=== PATIENT | female | born 1975 | race African-American/Black ===

== ENCOUNTER 2021-07-20 18:27 | Emergency (ER) | payer OTHER, SELFPAY ==
--- NOTE | ~2021-07-20 | US_ITS ---
EXAMINATION: US PELVIS CLINICAL INFORMATION: Pelvic pain with vaginal bleeding COMPARISON: None TECHNIQUE: Ultrasound of the pelvis is performed using both transabdominal and transvaginal transducers along with Doppler. Transvaginal imaging is performed due to inadequate visualization transabdominally. FINDINGS: Uterus: The enlarged uterus is anteverted and measures 12.2 x 7.0 x 7.5 cm for a volume of 335 mL. The double wall endometrial thickness is increased at 2.5 cm and may contain homogeneous blood products. At least 2 uterine fibroids are seen in the lower uterine segment measuring 3.5 x 4.07 cm and 2.4 x 2.9 x 2.8 cm.. Adnexa: The right ovary was not seen. Left ovary measured 3.1 x 2.6 x 2.2 cm for a volume of 9.3 mL. Small amount of free fluid is present in the cul-de-sac. US/US pelvic and transvaginal IMPRESSION: Uterine fibroids and thickened hypoechoic endometrium without vascularity may represent blood products the vaginal bleeding. Follow-up is recommended.
[2021-07-20 18:56] VITALS: BP 159/82; PULSE 84; RESP 20; TEMP 37.1; O2SAT 98; BMI 38.4
[2021-07-20 19:08] LABS: MANUAL DIFF FLAG NO
[2021-07-20 19:10] LABS: Basophils Percent Auto 0.2 % (0-2); Eosinophils Absolute Auto 0.1 X10*3/uL (0.0-0.4); Eosinophils Percent Auto 1.6 % (0-4); Hematocrit 35.1 % (37.0-47.0); Hemoglobin 10.9 g/dl (12.0-16.0); Imm Gran Abs Auto 0.02 X10*3/uL (0.00-0.03); Imm Gran Pct Auto 0.4 % (0.0-0.4); Lymphocytes Absolute Auto 1.2 X10*3/uL (1.2-4.9); Lymphocytes Percent Auto 23.8 % (20-40); Mean Corpuscular HGB Conc 31.1 g/dl (31.0-35.0); Mean Corpuscular Hemoglobin 23.4 pg (27.0-33.0); Mean Corpuscular Volume 75.5 fL (80.0-98.0); Mean Platelet Volume 9.7 fL (9.4-12.3); Monocytes Absolute Auto 0.5 X10*3/uL (0.1-1.2); Neutrophils Absolute Auto 3.3 x10*3/uL (2.0-8.3); Platelet Count 210 X10*3/uL (160-400); Red Blood Count 4.65 X10*6/uL (4.20-5.50); Red Cell Distribution Width 16.4 % (11.0-16.0); White Blood Count 5.1 X10*3/uL (4.8-10.8)
[2021-07-20 19:25] LABS: Appearance Urine CLOUDY; Color Urine OTHER; Glucose Urine UA NEG (NEG); Leukocyte Esterase Urine TRACE (NEG); Nitrite Urine NEG (NEG); PH 6.5 (5.0-8.0); Specific Gravity - Urine >= 1.030 (1.005-1.025); UACC Culture Trigger YES; Urine Blood 3+ (NEG); Urine Ketones 40 MG/DL (NEG); Urine Protein 2+ MG/DL (NEG-TRACE)
[2021-07-20 19:27] LABS: Anion Gap 12 (12-20); Blood Urea Nitrogen 13 mg/dL (9-16); Carbon Dioxide 26 mmol/L (22-29); Chloride 103 mmol/L (96-108); Creatinine Clr Calc Pharmacy 101.9; Estimated Glomerular Filt Rate > 60; Glucose Random 186 mg/dL (60-115); Potassium 3.9 mmol/L (3.3-5.1); Sodium 137 mmol/L (135-145)
[2021-07-20 19:29] LABS: UACC CULT YES
[2021-07-20 19:30] LABS: Amorphous Sediment Urine 3+ /LPF; Bacteria Urine 4+ /LPF; Mucus Urine 2+ /LPF; Squamous Epithelial Cell Urine 3+ /LPF
[2021-07-20 20:52] VITALS: BP 164/81; PULSE 80; RESP 18; TEMP 37; O2SAT 99
--- NOTE | 2021-07-20 21:23 | ED.FEMALEGU ---
HPI - Female Genitourinary General Chief complaint: Urogenital-Female Stated complaint: vaginal bleeding/pain Time Seen by Provider: 07/20/21 21:23 Source: patient Mode of arrival: ambulatory Limitations: no limitations History of Present Illness HPI Narrative: 2 weeks of period with pain, she has had prolonged periods with no pain MD elicited complaint: vaginal bleeding Onset (ago): day(s) Severity: mild Quality of pain: cramping Consistency: constant Associated symptoms: denies other symptoms Related Data Previous Rx's Medication Instructions Recorded naproxen 500 mg tablet (Naprosyn) 500 mg PO BID #20 tab 07/20/21 Allergies Allergy/AdvReac Type Severity Reaction Status Date / Time No Known Allergies Allergy Verified 07/20/21 18:55 Review of Systems Constitutional: Constitutional: Reports no additional constitutional complaints Eyes: Eyes: Reports no additional eye complaints ENT: Denies dizziness Cardiovascular: Cardiovascular: Reports no additional cardiovascular complaints Respiratory: Respiratory: Reports as per HPI Gastrointestinal: Gastrointestinal: Reports no additional gastrointestinal complaints Genitourinary: Genitourinary: Reports no additional female genitourinary complaints Musculoskeletal: Musculoskeletal: Reports no additional musculoskeletal complaints Integumentary/Breasts: Skin/Breast: Denies rash Neurologic: Reports system reviewed and no additional complaints, except as documented, Denies dizziness and Denies Sensory deficit (Neuro) Psychiatric: Psychiatric: Denies anxiety [facility] Social History Social History Alcohol intake: never Patient Tobacco Use Status: Never used Tobacco Use of substances other than those prescribed or required for medical reasons: No Advance Directives: No Advance Directives Information Provided: No Patient : No Physical Exam Vital Signs: Vital Signs: Last Vital Signs Temp 98.6 F 07/20/21 20:52 Pulse 84 07/20/21 22:00 Resp 15 07/20/21 22:00 BP 149/71 H 07/20/21 22:00 Pulse Ox 99 07/20/21 20:52 BMI result Body Mass Index 38.4 Const: Other: obese female in pain Nutritional Appearance: obese Orientation/consciousness: oriented to person and patient oriented x3 Limitations: no limitations HENMT: Head: Yes normal to inspection Ears: external ears normal General nose exam: Normal external nose present Mouth: Normal oral and palatal mucosa present and oropharynx normal Throat: Yes posterior oropharynx normal Eyes: General: appearance normal, both eyes and all related structures Neck: Other: supple Neck: Yes normal visual inspection Chest: Chest palpation & inspection: normal inspection of the chest Resp: Auscultation: clear to auscultation bilaterally Cardio: Jugular venous distension: no JVD Rate: regular rate Rhythm: regular rhythm Heart sounds: S1 normal heart sound present and S2 normal heart sound present GI: Other: pelvic pain to palpation, no guarding or rebound Palpation (GI): No hepatosplenomegaly present Auscultation: normal bowel sounds : Other: normal vagina and vault, minimal bleeding, positive uterine tenderness with palpation on bimanual exam General: Yes no CVA tenderness Back/Spine/Pelvis: Back: no CVA tenderness Skin: General skin exam: no rashes or lesions noted Neuro: General: oriented to person and patient oriented x3 Cranial nerves: Yes CN's II-XII intact bilaterally Motor exam (neuro): 5/5 motor strength present throughout Sensory Exam: No Sensory deficit (Neuro) Extrem: General: Yes normal to inspection Psych: Appearance: grossly normal Course Reevaluation(s) Reevaluation #1: Patient with dysmenorrhea secondary to fibroid uterus will dc home Time: 23:11 [facility] - Female Genitourinary Lab Data Result diagrams: 07/20/21 19:03 07/20/21 19:03 Labs: Lab Results 07/20/21 07/20/21 07/20/21 Range/Units 19:03 19:03 19:19 WBC 5.1 (4.8-10.8) X10*3/uL RBC 4.65 (4.20-5.50) X10*6/uL Hgb 10.9 L (12.0-16.0) g/dl Hct 35.1 L (37.0-47.0) % MCV 75.5 L (80.0-98.0) fL MCH 23.4 L (27.0-33.0) pg MCHC 31.1 (31.0-35.0) g/dl RDW 16.4 H (11.0-16.0) % Plt Count 210 (160-400) X10*3/uL MPV 9.7 (9.4-12.3) fL Immature Gran % (Auto) 0.4 (0.0-0.4) % Neut % (Auto) 65.0 (45-73) % Lymph % (Auto) 23.8 (20-40) % [place] % (Auto) 9.0 (2-11) % Eos % (Auto) 1.6 (0-4) % Baso % (Auto) 0.2 (0-2) % Lymph # (Auto) 1.2 (1.2-4.9) X10*3/uL [place] # (Auto) 0.5 (0.1-1.2) X10*3/uL Eos # (Auto) 0.1 (0.0-0.4) X10*3/uL Baso # (Auto) 0.0 (0.0-0.2) X10*3/uL Abs Immat Gran (auto) 0.02 (0.00-0.03) X10*3/uL Absolute Neuts (auto) 3.3 (2.0-8.3) x10*3/uL Absolute Nucleated RBC 0.000 (0.0-0.012) X10*3/uL Nucleated RBC % (auto) 0.0 (0.0-0.2) /100WBC Sodium 137 (135-145) mmol/L Potassium 3.9 (3.3-5.1) mmol/L Chloride 103 (96-108) mmol/L Carbon Dioxide 26 (22-29) mmol/L Anion Gap 12 (12-20) BUN 13 (9-16) mg/dL Creatinine 0.75 (0.5-1.4) mg/dL Estim Creat Clear Calc 101.9 Estimated GFR > 60 Random Glucose 186 H (60-115) mg/dL Calcium 9.0 (8.4-10.2) mg/dL Beta HCG, Quant < 2 mIU/mL Urine Color OTHER A Urine Appearance CLOUDY Urine pH 6.5 (5.0-8.0) Ur Specific [place] >= 1.030 H (1.005-1.025) Urine Protein 2+ H (NEG-TRACE) MG/DL Urine Glucose (UA) NEG (NEG) MG/DL Urine Ketones 40 (NEG) MG/DL Urine Blood 3+ H (NEG) Urine Nitrite NEG (NEG) Ur Leukocyte Esterase TRACE H (NEG) Urine RBC 76-150 H (0) /HPF Urine WBC 76-150 H (0-4) /HPF Ur Squamous Epith Cells 3+ /LPF Amorphous Sediment 3+ /LPF Urine Bacteria 4+ /LPF Urine Mucus 2+ /LPF Imaging Data pelvic US: Radiologist's impression: FINDINGS: Uterus: The enlarged uterus is anteverted and measures 12.2 x 7.0 x 7.5 cm for a volume of 335 mL. The double wall endometrial thickness is increased at 2.5 cm and may contain homogeneous blood products.? At least 2 uterine fibroids are seen in the lower uterine segment measuring 3.5 x 4.07 cm and 2.4 x 2.9 x 2.8 cm.. Adnexa: The right ovary was not seen. Left ovary measured 3.1 x 2.6 x 2.2 cm for a volume of 9.3 mL. Small amount of free fluid is present in the cul-de-sac. US/US pelvic and transvaginal IMPRESSION: Uterine fibroids and thickened hypoechoic endometrium without vascularity may represent blood products the vaginal bleeding. Follow-up is recommended. Discharge Plan Discharge Clinical Impression: Dysmenorrhea, Uterine fibroid Patient Disposition: Home, Self-Care Instructions: Dysmenorrhea (ED) Prescriptions: New naproxen [Naprosyn] 500 mg tablet 500 mg PO BID Qty: 20 0RF Referrals: Júnior Golden MD [Physician] - 1 week
[2021-07-20 21:55] LABS: HCG Quantitative < 2 mIU/mL
[2021-07-20 22:00] VITALS: BP 149/71; PULSE 84; RESP 15
[2021-07-20] MEDS: Ketorolac Tromethamine 60 MG/2 ML VIAL IM (22:30)
== END 2021-07-20 23:27 | disposition home or self-care (01) ==
PROVIDERS: Emergency Provider Emergency Medicine
DX: N94.6 Dysmenorrhea, unspecified (principal); D25.9 Leiomyoma of uterus, unspecified; R10.9 Unspecified abdominal pain; E11.9 Type 2 diabetes mellitus without complications
CPT/HCPCS: 36415; 76830; 76856; 80048; 81001; 84702; 85025; 87086; 87088; 87186; 96372; 99284; 99285; J1885

== ENCOUNTER 2021-07-21 17:51 | Emergency (ER) | payer OTHER, SELFPAY ==
[2021-07-21 18:07] VITALS: BP 162/88; PULSE 88; RESP 16; TEMP 36.3; O2SAT 99; BMI 38.4
--- NOTE | 2021-07-21 19:30 | ED_ITS ---
HPI - General Adult General Chief complaint: Vaginal Bleeding Stated complaint: Pelvic pain Time Seen by Provider: 07/21/21 18:30 Source: patient Mode of arrival: ambulatory Limitations: no limitations History of Present Illness HPI narrative: 46-year-old female with history of fibroids presents to the ED for pelvic pain. Patient was seen here yesterday for pelvic pain and vaginal bleeding. Patient had ultrasound yesterday which showed fibroids. Patient return to the ED today because she still having the same pain. Patient denies any weakness, chest pain, shortness of breath, or worsening vaginal bleeding. Patient next appointment with her OBGYN is September 26.. Denies any recent trauma. Related Data Previous Rx's Medication Instructions Recorded ketorolac 10 mg tablet 10 mg PO TID PRN 5 Days #20 tab 07/21/21 Allergies Allergy/AdvReac Type Severity Reaction Status Date / Time No Known Allergies Allergy Verified 07/21/21 18:04 Review of Systems Review of Systems: Pelvic pain Yes all other systems are reviewed and are negative [facility] Past Medical History Medical History (Updated 07/21/21 @ 20:26 by STEVE Cheng) No known health problems Social History Social History Alcohol intake: never Patient Tobacco Use Status: Never used Tobacco Advance Directives: No Advance Directives Information Provided: No Physical Exam ED Vital Signs: Vital Signs - 24 hr 07/21/21 18:07 Temperature 97.4 F Pulse Rate 88 Respiratory Rate 16 Blood Pressure 162/88 H Pulse Oximetry 99 BMI result Body Mass Index 38.4 Const General: cooperative, healthy appearing, comfortable, no acute distress, well developed, alert and awake Orientation/consciousness: patient oriented x3 HENMT Head: Yes normal to inspection, Yes No palpable skull fracture present, Yes normocephalic, Yes atraumatic and No abrasion Eyes General: appearance normal, both eyes and all related structures Neck Neck: Yes normal visual inspection, Yes full ROM, Yes no lymphadenopathy, Yes no meningeal signs, Yes trachea midline, Yes supple, No anterior neck swelling and No tender Chest Chest palpation & inspection: normal inspection of the chest and normal palpation of entire chest wall Resp Effort & Inspection: normal respiratory effort and able to speak in complete sentences Auscultation: clear to auscultation bilaterally Cardio Jugular venous distension: no JVD Heart sounds: S1 normal heart sound present and S2 normal heart sound present GI Inspection: Yes normal to inspection and No abdominal wall ecchymosis Palpation (GI): Tenderness to palpation present (GI) suprapubicly (pelvic), no guarding and not rigid Other: Deferred General: No CVA tenderness and Yes no CVA tenderness Back/Spine/Pelvis Back: no CVA tenderness, No CVA tenderness and No back tenderness Skin General skin exam: no rashes or lesions noted and elasticity normal Neuro General: patient oriented x3, gait normal and no meningeal signs Cranial nerves: Yes CN's II-XII intact bilaterally Extrem General: Yes normal to inspection and Yes full ROM Psych Appearance: grossly normal, well kempt and not disheveled Course Course Course Narrative: No need for repeat labs or imaging. Will order pain meds Reevaluation(s) Reevaluation #1: Patient's pain resolved after receiving Toradol. Patient asked to be discharged with Toradol. Patient informed to stop taking naproxen because both together. cause bleeding. Patient does not want any narcotics due to history of opiate addiction in the past and is on Suboxone Time: 20:23 Medical Decision Making MDM Narrative Medical decision making narrative: Fibroids Discharge Plan Discharge Clinical Impression: Fibroid Patient Disposition: Home, Self-Care Instructions: Dysmenorrhea (ED) Additional Instructions: Stop taking naproxen or any other NSAID due to prescription of Toradol that you will be given. If you take Toradol with any other NSAID ( ibuprofen, alleve, motrin, naproxen ) that will increase your chances for GI bleed. Return to the ED for worsening vaginal bleeding, severe abdominal pain, weakness, dizziness, pale skin, chest pain, shortness of breath, or any other concerning symptoms. Please call your OBGYN for early appointment Prescriptions: New ketorolac 10 mg tablet 10 mg PO TID PRN (Reason: pain) 5 Days Qty: 20 0RF Rx Instructions: patient received Toradol 60mg IM in the ED. Do not take any other NSAIDS with this medication. Discontinued naproxen [Naprosyn] 500 mg tablet 500 mg PO BID Qty: 20 0RF Interventions: ED Discharge Assessment Last Done: 07/21/21 20:47 Discharge Date/Time: 07/21/21 20:48 Print Language: Citizen Of [place]
[2021-07-21] MEDS: Ketorolac Tromethamine 60 MG/2 ML VIAL IM (19:32)
== END 2021-07-21 20:48 | disposition home or self-care (01) ==
PROVIDERS: Emergency Provider Internal Medicine
DX: N39.0 Urinary tract infection, site not specified (principal); D25.9 Leiomyoma of uterus, unspecified; R10.2 Pelvic and perineal pain; F11.20 Opioid dependence, uncomplicated
CPT/HCPCS: 96372; 99284; J1885

== ENCOUNTER 2021-07-25 09:43 | Outpatient (REF) | payer OTHER, SELFPAY ==
[2021-07-25 11:12] LABS: Hematocrit 34.5 % (37.0-47.0); Hemoglobin 10.4 g/dl (12.0-16.0); Mean Corpuscular HGB Conc 30.1 g/dl (31.0-35.0); Mean Corpuscular Volume 76.3 fL (80.0-98.0); Mean Platelet Volume 9.8 fL (9.4-12.3); Platelet Count 277 X10*3/uL (160-400); Red Blood Count 4.52 X10*6/uL (4.20-5.50); Red Cell Distribution Width 15.9 % (11.0-16.0); White Blood Count 7.1 X10*3/uL (4.8-10.8)
[2021-07-25 12:08] LABS: HCG Quantitative < 2 mIU/mL; TSH reflex Free T4 1.35 uIU/mL (0.32-4.0)
[2021-07-25 16:55] LABS: CT PCR NOT DETECTED (Not Detect.); NG PCR NOT DETECTED (Not Detect.)
[2021-07-27 21:07] LABS: HPV mRNA E6/E7 rflx Not Detected (Not Detected)
== END 2021-07-25 09:44 | disposition home or self-care (01) ==
LOC: HO.LAB 09:43
PROVIDERS: Visit Provider Obstetrics & Gynecology
DX: Z01.411 Encounter for gynecological examination (general) (routine) with abnormal findings (principal); Z11.51 Encounter for screening for human papillomavirus (HPV); N93.9 Abnormal uterine and vaginal bleeding, unspecified; R10.2 Pelvic and perineal pain
CPT/HCPCS: 36415; 84443; 84702; 85027; 87491; 87591; 87624; 88142; 99202

== ENCOUNTER 2021-08-03 13:58 | Outpatient (REF) | payer OTHER, SELFPAY ==
--- NOTE | ~2021-08-03 | MM_ITS ---
EXAMINATION: MM SCREENING DIGITAL BREAST TOMOSYNTHESIS, BILATERAL CLINICAL INFORMATION: Screening. Asymptomatic. The lifetime risk of breast cancer based on the Tyrer-Cuzick Model is 7%. COMPARISON: Outside mammography: 08/16/2020 ([facility]). TECHNIQUE: Digital breast tomosynthesis is performed in both the craniocaudal and mediolateral oblique views along with computer-aided detection (CAD). Synthesized 2D images are generated from the tomosynthesis. Additional right CC and right MLO views are provided. FINDINGS: There are scattered areas of fibroglandular density (ACR BI-RADS breast composition Category b). There are no significant masses, abnormal calcifications, or other abnormalities. Parenchymal pattern is similar to prior outside exam. The axilla and skin contours are unremarkable. There are no significant changes. MM/MM tomosynthesis screening BI IMPRESSION: No mammographic evidence of malignancy. ASSESSMENT: BI-RADS 1: Negative RECOMMENDATION: Routine annual mammography screening. This patient's information was entered into a reminder system with a target due date for their next mammogram.
== END 2021-08-03 13:59 | disposition home or self-care (01) ==
LOC: HO.MAMMO 13:58
PROVIDERS: Visit Provider Obstetrics & Gynecology
DX: Z12.31 Encounter for screening mammogram for malignant neoplasm of breast (principal)
CPT/HCPCS: 77063; 77067

== ENCOUNTER 2021-08-12 09:13 | Outpatient (REF) | payer OTHER, SELFPAY | END 2021-08-12 09:14 | disposition home or self-care (01) | LOC: HO.LAB 09:13 | PROVIDERS: Visit Provider Obstetrics & Gynecology | DX: N93.9 Abnormal uterine and vaginal bleeding, unspecified (principal) | CPT/HCPCS: 58100; 88305 ==

== ENCOUNTER → 2021-08-29 12:34 | Outpatient (BNVA) | payer OTHER, SELFPAY | PROVIDERS: Visit Provider Obstetrics & Gynecology | DX: N93.9 Abnormal uterine and vaginal bleeding, unspecified (principal); D25.9 Leiomyoma of uterus, unspecified; Z97.5 Presence of (intrauterine) contraceptive device; Z98.890 Other specified postprocedural states | CPT/HCPCS: 99212 ==

== ENCOUNTER → 2021-09-06 15:15 | Outpatient (BNVA) | payer OTHER, SELFPAY | PROVIDERS: Visit Provider Nurse Practitioner | DX: Z12.11 Encounter for screening for malignant neoplasm of colon (principal); F11.20 Opioid dependence, uncomplicated; G47.33 Obstructive sleep apnea (adult) (pediatric) | CPT/HCPCS: 99202 ==

== ENCOUNTER 2021-09-23 05:56 | Day surgery (SDC) | payer OTHER, SELFPAY ==
--- NOTE | 2021-09-22 08:57 | HO.ANESPROP2 ---
Documented by User: Nishi Ibarra NP 09/22/21 08:58 HPI - Anesthesia Eval Consult details Narrative: 46yo F for D&C Hysteroscopy, possible polypectomy/myomectomy,IUD removal Suboxone daily PMFSH Active Problems Active Problems: All Active Problems (Updated 09/16/21 @ 16:21 by Bernie Wilson, RN) Abnormal uterine bleeding (AUB) (Acute) Colon cancer screening (Acute) Asthma (Acute) BARRY (obstructive sleep apnea) (Acute) Diabetes (Acute) High cholesterol (Acute) Opioid dependence on agonist therapy (Acute) Lumbar degenerative disc disease (Acute) Urinary incontinence (Acute) Past Medical History Medical History (Updated 09/16/21 @ 16:21 by Bernei Wilson, RN) Asthma Back pain Diabetes High cholesterol History of opioid abuse BARRY (obstructive sleep apnea) Family History Family History Paternal Aunt Breast CA Surgical History Surgical History (Updated 09/05/21 @ 09:29 by JOSÉ MIGUEL Morrow) H/O total adrenalectomy S/P tubal ligation Social History Social History Alcohol intake: never Patient Tobacco Use Status: Never used Tobacco Use of substances other than those prescribed or required for medical reasons: No Are you DNR?: No Advance Directives: No Advance Directives Information Provided: Yes Meds Allergies Allergy/AdvReac Type Severity Reaction Status Date / Time No Known Allergies Allergy Verified 09/23/21 06:17 Home Medications Medication Instructions Recorded Confirmed Last Taken Type buprenorphine 2 mg-naloxone 0.5 mg 1 film BUCCAL DAILY 07/25/21 09/16/21 09/22/21 22:00 History sublingual film (Suboxone) dulaglutide 0.75 mg/0.5 mL 0.75 mg SUBCUT QWEEK 07/25/21 09/16/21 Unknown History subcutaneous pen injector (Trulicity) insulin glargine 100 unit/mL (3 10 unit SUBCUT BEDTIME 08/12/21 09/23/21 09/22/21 22:00 History mL) subcutaneous pen (Lantus Solostar U-100 Insulin) cyanocobalamin (vitamin B-12) 1 tab PO DAILY 09/16/21 09/16/21 Unknown History 1,000 mcg tablet sitagliptin 50 mg tablet (Januvia) 1 tab PO DAILY 09/16/21 09/16/21 Unknown History Exam Exam Date and Time: September 22, 2021 0857 Pertinent Lab Results Pertinent Lab Results: Laboratory Tests 07/20/21 07/25/21 19:03 10:50 WBC 7.1 Hgb 10.4 L Hct 34.5 L Plt Count 277 D Sodium 137 Potassium 3.9 Chloride 103 Carbon Dioxide 26 BUN 13 Creatinine 0.75 Assessment and Plan Assessment Anesthesia Assessment: Chart Reviewed Documented by User: Soren Villalobos MD 09/23/21 07:17 [facility] Past Medical History Medical History (Updated 09/16/21 @ 16:21 by Brenie Wilson RN) Asthma Back pain Diabetes High cholesterol History of opioid abuse BARRY (obstructive sleep apnea) Family History Family History Paternal Aunt Breast CA Family history of problems with anesthesia: No Surgical History Surgical History (Updated 09/05/21 @ 09:29 by JOSÉ MIGUEL Morrow) H/O total adrenalectomy S/P tubal ligation History of Problems with Anesthesia: No Social History Social History Alcohol intake: never Patient Tobacco Use Status: Never used Tobacco Use of substances other than those prescribed or required for medical reasons: No Are you DNR?: No Advance Directives: No Advance Directives Information Provided: Yes Meds Allergies Allergy/AdvReac Type Severity Reaction Status Date / Time No Known Allergies Allergy Verified 09/23/21 06:17 Home Medications Medication Instructions Recorded Confirmed Last Taken Type buprenorphine 2 mg-naloxone 0.5 mg 1 film BUCCAL DAILY 07/25/21 09/16/21 09/22/21 22:00 History sublingual film (Suboxone) dulaglutide 0.75 mg/0.5 mL 0.75 mg SUBCUT QWEEK 07/25/21 09/16/21 Unknown History subcutaneous pen injector (Trulicity) insulin glargine 100 unit/mL (3 10 unit SUBCUT BEDTIME 08/12/21 09/23/21 09/22/21 22:00 History mL) subcutaneous pen (Lantus Solostar U-100 Insulin) cyanocobalamin (vitamin B-12) 1 tab PO DAILY 09/16/21 09/16/21 Unknown History 1,000 mcg tablet sitagliptin 50 mg tablet (Januvia) 1 tab PO DAILY 09/16/21 09/16/21 Unknown History Exam Airway Mallampati Class: III TM Dist: >3cm Neck ROM: Full Assessment and Plan Assessment Anesthesia Assessment: Anesthesia Plan Discussed Final Anesthetic Review Family History of Problems with Anesthesia: No History of Problems with Anesthesia: No NPO: Yes ASA Class: III Final Preanesthetic Review: No Changes in Pt Med Stat, Meds/Allgs Chart Reviewed, Consent Obtained/Reviewed and Anes Risks/Benef Reviewed Patient Risk: Intermediate Procedure Risk: Low Anesthetic Plan Anesthetic Plan: GA Disposition: Standard PACU
[2021-09-23] VITALS (7 sets, daily range): BP systolic 132–156; BP diastolic 80–96; PULSE 75–94; RESP 16; TEMP 36.9–37.2; O2SAT 95–100; BMI 38.5
[2021-09-23 06:24] LABS: UPreg QC Valid YES; Urine Pregnancy NEGATIVE (NEGATIVE)
[2021-09-23 06:33] LABS: Glucose, Whole Blood 189 mg/dL (60-115)
[2021-09-23] MEDS: Lactated Ringers 1,000 ML 100 ML IVCONT (07:00)
--- NOTE | 2021-09-23 07:37 | MHC.SHP ---
Pre-Procedural Eval Section A Date of Service: 09/23/21 The patient is an INPATIENT: No Changes since office visit: No Cold of Flu in the past 2 weeks, No New Medical Problems, No Changes in Medication and No Patient answered all questions The History & Physical has been completed within 30 days and I have reviewed it.: Yes Section B Chief Complaint: abnormal bleeding Allergies: Allergies Allergy/AdvReac Type Severity Reaction Status Date / Time No Known Allergies Allergy Verified 09/23/21 06:17 Plan Diagnosis/Plan: Unchanged I have reviewed the history and physical and performed a pertinent physical examination on my patient. No changes have occurred unless specified.
--- NOTE | 2021-09-23 07:56 | PM.OP ---
Brief Operative Note Date of Service: 09/23/21 Pre-op diagnosis: Abnormal uterine bleeding Post-op diagnosis: same (Normal endometrial cavity) Procedure: Hysteroscopy D&C, Polypectomy Surgeon: Júnior Golden MD Anesthesia: MAC Was an Geographic Information Scientist used for this Procedure?: No Estimated blood loss (mL): 0 Pathology: other (Endometrial Scrapping. ) Condition: stable Disposition: PACU
--- NOTE | 2021-09-23 07:56 | W.PM.OPN ---
Operative Note Operative Note Date of Service: 09/23/21 Narrative: Preop Diagnosis: Abnormal uterine bleeding Operation: Diagnostic Hysteroscopy, Dilataion & Curettage Post Op Diagnosis: Normal endometrial cavity QBL: Minimal Anesthesia: MAC Surgeon: Júnior Golden MD Telephone Information Supervisor: None Complication: None Pathology: Endometrial Scrapings Procedure: The patient was put in the dorsal lithotomy position, scrubbed, and draped in the usual manner. A sterile speculum was inserted in the patient's vagina. The anterior lip of the cervix was grasped with a single tooth tenaculum. The cervix was dilated up to 5 mm, then the scope was inserted in the patient's uterus. Inspection revealed Normal endometrial cavity. The Myosure Reach device was used; sharp curettings was carried on with moderate amount of tissues retrieved. At the end of the procedure, all instruments were taken out of the patient uterine and vaginal cavity. The single tooth tenaculum was removed and homeostasis was assured using pressure,. The patient tolerated the procedure well and was transferred to the PACU in a stable condition.
== END 2021-09-23 09:10 | disposition home or self-care (01) ==
PROVIDERS: Visit Provider Obstetrics & Gynecology
PROC: 0UDB8ZZ Extraction of Endometrium, Via Natural or Artificial Opening Endoscopic (ICD-10-PCS; CPT 58558; principal; 2021-09-23 07:30)
DX: N93.9 Abnormal uterine and vaginal bleeding, unspecified (principal); Z30.432 Encounter for removal of intrauterine contraceptive device
CPT/HCPCS: 58558; 58301; 81025; 82947; 88305; J0131; J1100; J2250; J2405; J3010

== ENCOUNTER → 2021-10-06 11:47 | Outpatient (BNVA) | payer OTHER, SELFPAY | PROVIDERS: Visit Provider Obstetrics & Gynecology | DX: N93.9 Abnormal uterine and vaginal bleeding, unspecified (principal); D21.9 Benign neoplasm of connective and other soft tissue, unspecified | CPT/HCPCS: 99212 ==

== ENCOUNTER 2022-05-05 17:46 | Emergency (ER) | payer OTHER, SELFPAY ==
--- NOTE | ~2022-05-05 | US_ITS ---
EXAMINATION: ULTRASOUND PELVIC, COMPLETE CLINICAL INFORMATION: Lower abdominal pain. COMPARISON: Pelvic ultrasound 07/20/2021 TECHNIQUE: Transvaginal: Used to better visualize pelvic structures Transabdominal: Not adequate for visualization. Spectral Doppler and color Doppler exam was utilized. LMP: 3 months ago FINDINGS: UTERUS: Uterus measures 13.8 x 3.4 x 3.6 cm. Total uterine volume 522 mL. There are uterine fibroids: 1. Anterior body 4.6 x 3.4 x 4.1 cm. This previously measured 3.5 x 4 x 3.7 cm. 2. Posterior proximal body. 2.5 x 2.1 x 2.3 cm. Previous measurement 2.4 x 2.9 x 2.8 cm. Thickened endometrial stripe measuring 6.2 cm. Hypoechoic mildly heterogeneous fluid within the endometrial cavity. This fluid has increased in volume since pelvic ultrasound 07/20/2021. Endometrial thickness on prior study 2.4 cm. ADNEXA: Right adnexa: Right ovary is not visualized. Left adnexa: Ovarian vascularity:Doppler demonstrates both arterial and venous vascular flow in the left ovary. No evidence of ovarian torsion. Left Ovary: 1.8 x 2.9 x 1.6 cm. Volume 4.4 mL Cul-de-sac: No Fluid US/US pelvic and transvaginal IMPRESSION: 1. Uterine fibroids. 2. Thickened endometrial stripe measuring 6.2 cm. Hypoechoic mildly heterogeneous fluid in the endometrial cavity. This fluid has increased in volume since ultrasound exam 07/20/2021. 3. Right ovary is not visualized. Left ovary is normal. No adnexal mass or fluid in the cul-de-sac.
--- NOTE | ~2022-05-05 | CT_ITS ---
EXAMINATION: CT ABDOMEN AND PELVIS WITHOUT CONTRAST CLINICAL INFORMATION: Lower abdominal pain with radiation to the back COMPARISON: Ultrasound 05/05/2022 TECHNIQUE: Multidetector volumetric imaging was performed from the lung bases through the pubic symphysis. Sagittal and coronal reformatted images were obtained on the technologist workstation. This CT examination was performed using dose optimization techniques as appropriate, variously including the following: *Automated exposure control *Adjustment of mA and/or kV according to patient size (this includes techniques or standardized protocols for targeted exams where dose is matched to indication/reason for exam; i.e. extremities or head) *Use of iterative reconstruction technique FINDINGS: The lack of intravenous contrast limits evaluation of the solid visceral organs including the liver, spleen, pancreas, and kidneys. LUNG BASES: The visualized lung bases are unremarkable. LIVER, GALLBLADDER, AND BILIARY TREE: Limited non-contrast evaluation is normal. No gross focal hepatic lesion. Normal liver size and contour. No gross biliary ductal dilation. The gallbladder is unremarkable with no evidence of radiopaque gallstones, gallbladder wall thickening, or obvious pericholecystic inflammatory changes. PANCREAS: Limited non-contrast evaluation is normal. No nicholas-pancreatic fluid. SPLEEN: Limited non-contrast evaluation is normal. ADRENAL GLANDS: Normal; no adrenal mass. KIDNEYS AND URETERS: Limited non-contrast evaluation is normal. No hydronephrosis, hydroureter, or calculi seen. No perinephric stranding. GASTROINTESTINAL TRACT: Small bowel and colon are non-dilated. No bowel wall thickening. No pericolonic inflammatory changes to suggest colitis or diverticulitis. Normal appendix. ABDOMINAL WALL: Tiny fat-containing umbilical hernia. LYMPH NODES: No pathologically enlarged lymph nodes in the abdomen or pelvis. VASCULAR: Normal caliber abdominal aorta. BLADDER: The bladder is collapsed. PELVIC VISCERA: Normal CT appearance of the adnexa. The endometrial canal is markedly distended with fluid, up to 5.7 cm on sagittal images. The fluid measures simple fluid density. OSSEOUS STRUCTURES: No acute or suspicious osseous abnormalities. CT/CT abdomen pelvis wo IV con IMPRESSION: The endometrial canal is markedly distended with fluid consistent with hydrometra. Cervical stenosis could give this appearance. Recommend gynecology consultation.
--- NOTE | ~2022-05-05 | US_ITS ---
EXAMINATION: ULTRASOUND PELVIC, COMPLETE CLINICAL INFORMATION: Lower abdominal pain. COMPARISON: Pelvic ultrasound 07/20/2021 TECHNIQUE: Transvaginal: Used to better visualize pelvic structures Transabdominal: Not adequate for visualization. Spectral Doppler and color Doppler exam was utilized. LMP: 3 months ago FINDINGS: UTERUS: Uterus measures 13.8 x 3.4 x 3.6 cm. Total uterine volume 522 mL. There are uterine fibroids: 1. Anterior body 4.6 x 3.4 x 4.1 cm. This previously measured 3.5 x 4 x 3.7 cm. 2. Posterior proximal body. 2.5 x 2.1 x 2.3 cm. Previous measurement 2.4 x 2.9 x 2.8 cm. Thickened endometrial stripe measuring 6.2 cm. Hypoechoic mildly heterogeneous fluid within the endometrial cavity. This fluid has increased in volume since pelvic ultrasound 07/20/2021. Endometrial thickness on prior study 2.4 cm. ADNEXA: Right adnexa: Right ovary is not visualized. Left adnexa: Ovarian vascularity:Doppler demonstrates both arterial and venous vascular flow in the left ovary. No evidence of ovarian torsion. Left Ovary: 1.8 x 2.9 x 1.6 cm. Volume 4.4 mL Cul-de-sac: No Fluid US/US pelvic ovarian doppler IMPRESSION: 1. Uterine fibroids. 2. Thickened endometrial stripe measuring 6.2 cm. Hypoechoic mildly heterogeneous fluid in the endometrial cavity. This fluid has increased in volume since ultrasound exam 07/20/2021. 3. Right ovary is not visualized. Left ovary is normal. No adnexal mass or fluid in the cul-de-sac.
--- NOTE | 2022-05-05 18:42 | ED.BACK ---
HPI - Back Pain/Injury General Chief Complaint: Abdominal Pain <STEVE Amador - Last Filed: 05/05/22 18:47> Stated Complaint: Back pain <STEVE Amador - Last Filed: 05/05/22 18:47> Time Seen by Provider: 05/05/22 23:32 <STEVE Amador - Last Filed: 05/05/22 18:47> Source: patient <Sumaya Domínguez DO - Last Filed: 05/05/22 23:56> Mode of arrival: ambulatory <Sumaya Domínguez DO - Last Filed: 05/05/22 23:56> Limitations: no limitations <Sumaya Domínguez DO - Last Filed: 05/05/22 23:56> History of Present Illness HPI Narrative: 47 yo female with hx of DM, HLD, chronic pelvic pain and irregular bleeding - has had issues getting biopsy in the past notes she needs another one with her new OB at [facility] who has been pushing her to get one. She does not her suboxone treats her pain. She notes the past 5 days her cramping has been worse, bleeding is not presents. She has no fevers, vomiting, diarrhea. <Sumaya Domínguez DO - Last Filed: 05/05/22 23:56> MD elicited complaint: other (pelvic pain) <Sumaya Domínguez DO - Last Filed: 05/05/22 23:56> Onset (ago): day(s) (5) <Sumaya Domínguez DO - Last Filed: 05/05/22 23:56> Timing: intermittent <Sumaya Domínguez DO - Last Filed: 05/05/22 23:56> Severity: moderate <Sumaya Domínguez DO - Last Filed: 05/05/22 23:56> Similar Symptoms Previously: Yes <Sumaya Domínguez DO - Last Filed: 05/05/22 23:56> Quality: aching <Sumaya Domínguez DO - Last Filed: 05/05/22 23:56> Radiation: none <Sumaya Domínguez DO - Last Filed: 05/05/22 23:56> Exacerbating factors: movement <Sumaya Domínguez DO - Last Filed: 05/05/22 23:56> Relieving factors: none <Sumaya Sang, DO - Last Filed: 12/09/22 23:56> Context: other (chronic pelvic pain) <Sumaya Domínguez DO - Last Filed: 05/05/22 23:56> Associated symptoms: denies other symptoms <Sumaya Domínguez DO - Last Filed: 05/05/22 23:56> Work related injury: No <Sumaya Domínguez DO - Last Filed: 05/05/22 23:56> Related Data Home Medications: Home Medications Medication Instructions Recorded Confirmed buprenorphine 2 mg-naloxone 0.5 mg 1 film buccal DAILY 07/25/21 09/16/21 sublingual film (Suboxone) dulaglutide 0.75 mg/0.5 mL 0.75 mg subcut QWEEK 07/25/21 09/16/21 subcutaneous pen injector (Trulicity) insulin glargine 100 unit/mL (3 10 unit subcut BEDTIME 08/12/21 09/23/21 mL) subcutaneous pen (Lantus Solostar U-100 Insulin) cyanocobalamin (vitamin B-12) 1 tab PO DAILY 09/16/21 09/16/21 1,000 mcg tablet sitagliptin phosphate 50 mg tablet 1 tab PO DAILY 09/16/21 09/16/21 (Januvia) Previous Rx's Medication Instructions Recorded ferrous sulfate 325 mg (65 mg 325 mg PO DAILY 90 days #90 tabs 07/25/21 iron) tablet,delayed release peg 3350-electrolytes 236 240 ml PO Q10M 1 day #4,000 mL 09/06/21 gram-22.74 gram-6.74 gram-5.86 gram solution (Golytely) medroxyprogesterone 10 mg tablet 10 mg PO DAILY 10 days #30 tabs 11/04/21 (Provera) cyclobenzaprine 10 mg tablet 10 mg PO TID PRN muscle spasm #14 05/05/22 tabs <STEVE Amador - Last Filed: 05/05/22 18:47> Allergies/Adverse Reactions: Allergies Allergy/AdvReac Type Severity Reaction Status Date / Time No Known Allergies Allergy Verified 10/06/21 11:51 <STEVE Amador - Last Filed: 05/05/22 18:47> Review of Systems Review of Systems: Constitutional : No Fever, No Chills ENT/Mouth : No sore throat, No Rhinorrhea Eyes: No Eye Pain, No Redness Cardiovascular : No Chest Pain, No SOB Respiratory : No Cough, No Sputum, No Wheezing Gastrointestinal : positive Nausea, No Vomiting, No Diarrhea, positive abdominal pain, Genitourinary : positive irregular bleeding, No Dysuria, No Urinary Frequency, positive pelvic pain Musculoskeletal : No Myalgias Skin : No rash Neuro : No Weakness, No Headache Psych : No Anxiety/Panic, No Depression Heme/Lymph: No bruising, No Lymphadenopathy Endocrine : No Polyuria, No Polydipsia All other systems reviewed and are negative <Sumaya Domínguez DO - Last Filed: 05/05/22 23:56> [facility] Past Medical History Attestation statement: The following information was validated with the patient. <Sumaya Domínguez DO - Last Filed: 05/05/22 23:56> Medical History: Medical History Asthma Back pain Diabetes High cholesterol History of opioid abuse BARRY (obstructive sleep apnea) <STEVE Amador - Last Filed: 05/05/22 18:47> Surgical History: Surgical History H/O total adrenalectomy S/P tubal ligation <STEVE Amador - Last Filed: 05/05/22 18:47> Family History Family History: Family History Paternal Aunt Breast CA <STEVE Amador - Last Filed: 05/05/22 18:47> Social History Social History: Social History Alcohol intake: never Patient Tobacco Use Status: Never used Tobacco Advance Directives: No Advance Directives Information Provided: Yes <STEVE Amadro - Last Filed: 05/05/22 18:47> Physical Exam Vital Signs: Vital Signs: Last Vital Signs Temp 99.1 F 05/05/22 18:45 Pulse 85 05/05/22 18:45 Resp 18 05/05/22 18:45 BP 190/102 H 05/05/22 18:45 Pulse Ox 97 05/05/22 18:45 O2 Del Method 05/05/22 18:45 BMI result Body Mass Index 38.5 <STEVE Amador - Last Filed: 05/05/22 18:47> Vital Signs: Last Vital Signs Temp 99.1 F 05/05/22 18:45 Pulse 85 05/05/22 18:45 Resp 18 05/05/22 18:45 BP 190/102 H 05/05/22 18:45 Pulse Ox 97 05/05/22 18:45 O2 Del Method 05/05/22 18:45 BMI result Body Mass Index 38.5 <Sumaya Domínguez DO - Last Filed: 05/05/22 23:56> Appearance: Alert. Oriented X3. No acute distress. Eyes: Pupils equal, round and reactive to light. ENT: Pharynx normal. Neck: Normal inspection. Neck supple. CVS: Normal heart rate and rhythm. Pulses normal. Respiratory: No respiratory distress. Breath sounds normal. Abdomen: Soft and nontender. Skin: Skin warm and dry. Normal skin color. Normal skin turgor. Extremities: No lower extremity edema. No calf ttp Neuro: Oriented X 3. No motor deficit. No sensory deficit. <Sumaya Domínguez DO - Last Filed: 05/05/22 23:56> Course Course Course Narrative: RME: 47 yo f hx of opiate dependence on agonist therapy, HTN, diabetes, asthma presents w/ constipation, sudden onset lower abd pain w/ radiation to b/l flank, dyuria, and feeling that her vagina is full X 5 days. PE: lower abd pain on palpation. Plan: labs, urine, ct of abd and pelvis, US pelvic/ transvaginal, ovarian doppler <STEVE Amador - Last Filed: 05/05/22 18:47> Medical Decision Making Medical Decision Making MDM Narrative: 47 yo female with hx of pelvic pain, DM, HLD here with chronic pelvic pain no fevers, vomiting, pain is controlled with her suboxone. She was told she needs a biopsy again by her OBGYN at this time CT scan and US show enlarging endometrium. I have discussed with her the importance of OBGYN follow up and concerns this could lead to uterine cancer in the future if she lets this go untreated. She plans to follow up this week - not toxic. Can go home with muscle relaxers already on pain medication. <Sumaya Domínguez DO - Last Filed: 05/05/22 23:56> Differential Diagnoses: Differential diagnosis (pelvic mass, constipation) <Sumaya Domínguez DO - Last Filed: 05/05/22 23:56> Lab Attestation: I reviewed the patient's lab results. <Sumaya Domínguez DO - Last Filed: 05/05/22 23:56> Independent interpretation of EKG, rhythm strip, radiology study: Independent interp EKG,rhythm strip, radiology study I performed an independent interpretation of the: Ultrasound My interpretation is enlarged uterus seen on ultrasound - heterogeneous <Sumaya Domínguez DO - Last Filed: 05/05/22 23:56> Prescription medication was considered but ultimately not given after discussion with patient/family. (e.g., pain medication, antiviral, antibiotic): Prescriptions considered but not given I considered prescription management with: Pain Medication (on suboxone) <Sumaya Domínguez DO - Last Filed: 05/05/22 23:56> Discharge Plan Discharge Clinical Impression: Pelvic pain, Abnormal ultrasound of uterus <STEVE Amador - Last Filed: 05/05/22 18:47> Patient Disposition: Home, Self-Care <STEVE Amador - Last Filed: 05/05/22 18:47> Instructions: Pelvic Pain (ED) <STEVE Amador - Last Filed: 05/05/22 18:47> Additional Instructions: return to ED for any worsening symptoms or concerns PLEASE SEE YOUR OBGYN THIS WEEK TO ADDRESS THE FINDINGS ON CT SCAN AND ULTRASOUND - THIS NEEDS TO BE FOLLOWED UP CLOSELY GIVEN THE CHANGE IN SIZE <STEVE Amador - Last Filed: 05/05/22 18:47> Prescriptions: New cyclobenzaprine 10 mg tablet 10 mg PO TID PRN (Reason: muscle spasm) Qty: 14 0RF No Action ferrous sulfate 325 mg (65 mg iron) tablet,delayed release (DR/EC) 325 mg PO DAILY 90 Days Qty: 90 1RF medroxyprogesterone [Provera] 10 mg tablet 10 mg PO DAILY 10 Days Qty: 30 3RF Rx Instructions: start Provera 1 tablet daily from day 15-24 cyclically every months, day 1 being 1st day of menses cyanocobalamin (vitamin B-12) 1,000 mcg tablet 1 tab PO DAILY Januvia 50 mg tablet 1 tab PO DAILY Lantus Solostar U-100 Insulin 100 unit/mL (3 mL) insulin pen 10 unit subcut BEDTIME peg 3350-electrolytes [Golytely] 236-22.74-6.74 -5.86 gram recon soln 240 ml PO Q10M 1 Days Qty: 4000 0RF Rx Instructions: until fecal effluent is clear; do not exceed a total volume of 2,000 mL buprenorphine-naloxone [Suboxone] 2-0.5 mg film 1 film buccal DAILY Rx Instructions: place 1 strip/tab under (each) side of tongue Trulicity 0.75 mg/0.5 mL pen injector 0.75 mg subcut QWEEK <STEVE Amador - Last Filed: 05/05/22 18:47>
[2022-05-05 18:45] VITALS: BP 190/102; PULSE 85; RESP 18; TEMP 37.3; O2SAT 97; BMI 38.5
[2022-05-05 20:00] LABS: MANUAL DIFF FLAG NO
[2022-05-05 20:05] LABS: Appearance Urine Clear; Color Urine Yellow; Glucose Urine UA Negative (Negative); Leukocyte Esterase Urine Negative (Negative); Nitrite Urine Negative (Negative); Specific Gravity - Urine >= 1.030 (1.005-1.025); Urine Blood Negative (Negative); Urine Ketones Trace mg/dL (Negative); Urine Protein Trace mg/dL (Neg-Trace)
[2022-05-05 20:07] LABS: Basophils Percent Auto 0.7 % (0-2); Eosinophils Absolute Auto 0.1 X10*3/uL (0.0-0.4); Eosinophils Percent Auto 1.5 % (0-4); Hematocrit 37.4 % (37.0-47.0); Imm Gran Abs Auto 0.03 X10*3/uL (0.00-0.03); Imm Gran Pct Auto 0.5 % (0.0-0.4); Lymphocytes Absolute Auto 1.9 X10*3/uL (1.2-4.9); Lymphocytes Percent Auto 30.9 % (20-40); Mean Corpuscular HGB Conc 32.1 g/dl (31.0-35.0); Mean Corpuscular Hemoglobin 24.9 pg (27.0-33.0); Mean Corpuscular Volume 77.6 fL (80.0-98.0); Mean Platelet Volume 9.8 fL (9.4-12.3); Monocytes Absolute Auto 0.4 X10*3/uL (0.1-1.2); Monocytes Percent Auto 6.2 % (2-11); Neutrophils Absolute Auto 3.6 x10*3/uL (2.0-8.3); Neutrophils Percent Auto 60.2 % (45-73); Platelet Count 284 X10*3/uL (160-400); Red Blood Count 4.82 X10*6/uL (4.20-5.50); Red Cell Distribution Width 13.9 % (11.0-16.0)
[2022-05-05 20:20] LABS: Alanine Aminotransferase 17 U/L (0-31); Albumin Level 4.1 g/dL (3.5-5.0); Alkaline Phosphatase 75 U/L (39-117); Anion Gap 9 (12-20); Aspartate Amino Transferase 17 U/L (5-31); Bilirubin Total 0.4 mg/dL (0.0-1.0); Blood Urea Nitrogen 12 mg/dL (9-16); Calcium 9.5 mg/dL (8.4-10.2); Carbon Dioxide 28 mmol/L (22-29); Chloride 104 mmol/L (96-108); Creatinine Clr Calc Pharmacy 102.4; Estimated Glomerular Filt Rate > 60; Glucose Random 152 mg/dL (60-115); Lipase 24 U/L (8-78); Potassium 4.1 mmol/L (3.3-5.1); Sodium 137 mmol/L (135-145); Total Protein 7.7 g/dL (6.5-8.0)
[2022-05-05 21:10] LABS: HCG Quantitative < 2 mIU/mL
[2022-05-05 23:52] VITALS: BP 155/85; PULSE 88; RESP 16; TEMP 36.6; O2SAT 98
--- NOTE | 2022-05-06 00:01 | PC.NURSE ---
Discharge instructions reviewed with pt. Pt verbalizes understanding.
== END 2022-05-06 00:02 | disposition home or self-care (01) ==
PROVIDERS: Physician Assistant; Emergency Provider Emergency Medicine
DX: R10.2 Pelvic and perineal pain (principal); N85.00 Endometrial hyperplasia, unspecified; I10 Essential (primary) hypertension; E11.9 Type 2 diabetes mellitus without complications; Z79.899 Other long term (current) drug therapy
CPT/HCPCS: 36415; 74176; 76830; 76856; 80053; 81003; 83690; 84702; 85025; 93975; 99284

== ENCOUNTER 2025-03-21 14:39 | Emergency (ER) | payer OTHER, SELFPAY ==
--- NOTE | ~2025-03-21 | CT_ITS ---
CLINICAL HISTORY: L facial numbness forhead lumps. CT head without contrast Comparison: None Findings: No intracranial mass, midline shift, hydrocephalus, or acute hemorrhage. No CT evidence of acute ischemia. Visualized paranasal sinuses and mastoid air cells normal. Orbits unremarkable. No skull fracture Impression: 1. No acute intracranial abnormalities. This document has been electronically signed by: Wilbert Radford MD on 03/21/2025 16:20:02
--- NOTE | ~2025-03-21 | MR_ITS ---
CLINICAL HISTORY: left sided weakness ---? bells vs cva Pt was severe claustrophobic, unable to finish the exam even with medication. Only DWI and Ax T2 Flair were done Exam: Nonenhanced MRI brain. Comparison: Same day CT brain. Findings: There is no cerebral edema or mass effect. White matter signal intensities are maintained. Diffusion weighted imaging reveals no restricted diffusion or MR evidence of acute ischemia. No sellar or parasellar lesions. Ventricular size and configuration are within normal limits. Cerebral cisterns are preserved. No significant signal abnormality seen within the paranasal sinuses or mastoid air cells. Preserved flow signal voids are present within visualized intracranial vasculature. Impression: 1. No acute intracranial abnormalities. Specifically, no restricted diffusion or MR evidence of acute ischemia. This document has been electronically signed by: Wilbert Radford MD on 03/21/2025 18:19:19
--- NOTE | 2025-03-21 14:42 | ED.NEUROSD ---
HPI - Neuro Symptoms/Deficit General Chief Complaint: General Medical Stated Complaint: l sided facial numbness Time Seen by Provider: 03/21/25 16:49 Related Data Home Medications ?Medication ?Instructions ?Recorded ?Confirmed buprenorphine 2 mg-naloxone 0.5 mg 1 film buccal DAILY 07/25/21 09/16/21 sublingual film (Suboxone) dulaglutide 0.75 mg/0.5 mL 0.75 mg subcut QWEEK 07/25/21 09/16/21 subcutaneous pen injector (Trulicity) insulin glargine 100 unit/mL (3 10 unit subcut BEDTIME 08/12/21 09/23/21 mL) subcutaneous pen (Lantus Solostar U-100 Insulin) cyanocobalamin (vitamin B-12) 1 tab PO DAILY 09/16/21 09/16/21 1,000 mcg tablet sitagliptin phosphate 50 mg tablet 1 tab PO DAILY 09/16/21 09/16/21 (Januvia) Previous Rx's ?Medication ?Instructions ?Recorded ferrous sulfate 325 mg (65 mg 325 mg PO DAILY 90 days #90 tabs 07/25/21 iron) tablet,delayed release peg 3350-electrolytes 236 240 ml PO Q10M 1 day #4,000 mL 09/06/21 gram-22.74 gram-6.74 gram-5.86 gram solution (Golytely) medroxyprogesterone 10 mg tablet 10 mg PO DAILY 10 days #30 tabs 11/04/21 (Provera) cyclobenzaprine 10 mg tablet 10 mg PO TID PRN muscle spasm #14 05/05/22 tabs prednisone 20 mg tablet 40 mg (2 x 20 mg) PO DAILY #10 tabs 03/21/25 Allergies Allergy/AdvReac Type Severity Reaction Status Date / Time No Known Allergies Allergy Verified 03/21/25 14:51 [facility] Past Medical History Medical History Asthma Back pain Diabetes High cholesterol History of opioid abuse BARRY (obstructive sleep apnea) Surgical History H/O total adrenalectomy S/P tubal ligation Family History Family History Paternal Aunt Breast CA Social History Social History Alcohol intake: never Patient Tobacco Use Status: Never used Tobacco Physical Exam Vital Signs: Vital Signs: Last Vital Signs Temp 98.5 F 03/21/25 18:57 Pulse 86 03/21/25 18:57 Resp 20 03/21/25 18:57 BP 162/93 H 03/21/25 18:57 Pulse Ox 96 03/21/25 18:57 O2 Del Method Room Air 03/21/25 18:57 BMI result Body Mass Index 36.8 Course Course Course Narrative: This is a Rapid Medical Exam performed in triage by Giovanna Sen PA-C. Full HPI, ROS and PE to be performed by primary ED provider. 50 yo F w/PMHx asthma, BARRY, HLD, DM, presenting to the ED c/o left sided facial swelling & numbness since waking this AM around 11am. Went to bed at 5AM (last known well). denies sx in other parts of body PE: +two swollen lumps to forehead. exam otherwise nonfocal. ambulating w/steady gait Plan: EKG, labs, Head CT Medications Administered Discontinued Medications Generic Name Dose Route Start Last Admin Trade Name Freq PRN Reason Stop Dose Admin Lorazepam 0.5 mg 03/21/25 17:30 03/21/25 17:39 Lorazepam 0.5 Mg Tablet PO 03/21/25 17:31 0.5 mg ONCE ONE Administration Medical Decision Making Medical Decision Making [facility] Narrative: Patient is a 50-year-old female presented with having left-sided facial numbness. Patient feels some watery eyes. On exam patient definitely had a droop on the left side. I did not appreciate any weakness in the face. She did have watery eyes suggestive of bowels. The symptoms are somewhat mild. CT scan of the head was negative sugar was normal. She does have a history diabetes. I did an MRI of the head. The MRI was interpreted as no evidence of ischemia. Likely the secondary bowels. There is no change in voice. There is no difficulty in swallowing. There is no weakness in the arms and legs. Will start patient on steroid worn patient as she is diabetic steroids can make her sugar go up. She will need to be very careful. Knee close follow-up on an outpatient basis. Taper eyes at night. A line was sent. Currently in stable condition. Differential Diagnosis Differential Diagnoses: The differential diagnosis associated with the presentation includes Lyme versus stroke versus hypoglycemia Admission/Observation Consideration of admission/observation: Escalation of care including admission/observation considered Lab Data MDM Lab Attestation statement: I reviewed the patient's lab results. 03/21/25 14:59 03/21/25 14:59 Labs: Lab Results 03/21/25 Range/Units 14:59 WBC 6.5 (4.8-10.8) X10*3/uL RBC 5.14 (4.20-5.50) X10*6/uL Hgb 12.3 (12.0-16.0) g/dl Hct 39.1 (37.0-47.0) % MCV 76.1 L (80.0-98.0) fL MCH 23.9 L (27.0-33.0) pg MCHC 31.5 (31.0-35.0) g/dl RDW 15.6 (11.0-16.0) % Plt Count 242 (160-400) X10*3/uL MPV 9.4 (9.4-12.3) fL Immature Gran % (Auto) 0.5 H (0.0-0.4) % Neut % (Auto) 64.3 (45-73) % Lymph % (Auto) 26.3 (20-40) % [place] % (Auto) 6.1 (2-11) % Eos % (Auto) 2.5 (0-4) % Baso % (Auto) 0.3 (0-2) % Lymph # (Auto) 1.7 (1.2-4.9) X10*3/uL [place] # (Auto) 0.4 (0.1-1.2) X10*3/uL Eos # (Auto) 0.2 (0.0-0.4) X10*3/uL Baso # (Auto) 0.0 (0.0-0.2) X10*3/uL Abs Immat Gran (auto) 0.03 (0.00-0.03) X10*3/uL Absolute Neuts (auto) 4.2 (2.0-8.3) x10*3/uL Absolute Nucleated RBC 0.000 (0.0-0.012) X10*3/uL Nucleated RBC % (auto) 0.0 (0.0-0.2) /100WBC Sodium 139 (135-145) mmol/L Potassium 3.7 (3.3-5.1) mmol/L Chloride 105 (96-108) mmol/L Carbon Dioxide 27 (22-29) mmol/L Anion Gap 11 L (12-20) BUN 16 (9-16) mg/dL Creatinine 0.74 (0.5-1.4) mg/dL Estim Creat Clear Calc 96.6 Estimated GFR > 60 Random Glucose 238 H (60-115) mg/dL Calcium 9.0 (8.4-10.2) mg/dL Magnesium 1.6 (1.6-2.6) mg/dL Total Bilirubin 0.6 (0.0-1.0) mg/dL Direct Bilirubin 0.2 (0.0-0.5) mg/dL AST 22 (5-31) U/L ALT 21 (0-31) U/L Alkaline Phosphatase 88 (39-117) U/L Total Protein 7.6 (6.5-8.0) g/dL Albumin 4.0 (3.5-5.0) g/dL Independent Interpretation I performed an independent interpretation of an: EKG (Sinus heart rate is 80 [place] QRS QTC within normal limits is no acute ST segment elevation noted.) Radiology Impression Discussion of test interpretation with radiology: I have reviewed the radiologist's reading. External Record Review External record reviewed: Inpatient record Chronic Conditions Patient?s care impacted by: Diabetes and Hypertension Social Determinants Patient?s care significantly limited by Social Determinants of Health including: Problems related to primary support group Discharge Plan Discharge Clinical Impression: Diabetes, Kruger palsy Patient Disposition: Home, Self-Care Instructions: Kruger Palsy (ED) Additional Instructions: will call IF positive lyme results within 5 days. follow up with primary care provider return for any worsening symptoms. Prescriptions: New prednisone 20 mg tablet 40 mg PO DAILY Qty: 10 0RF No Action ferrous sulfate 325 mg (65 mg iron) tablet,delayed release (DR/EC) 325 mg PO DAILY 90 Days Qty: 90 1RF medroxyprogesterone [Provera] 10 mg tablet 10 mg PO DAILY 10 Days Qty: 30 3RF Rx Instructions: start Provera 1 tablet daily from day 15-24 cyclically every months, day 1 being 1st day of menses cyanocobalamin (vitamin B-12) 1,000 mcg tablet 1 tab PO DAILY Januvia 50 mg tablet 1 tab PO DAILY cyclobenzaprine 10 mg tablet 10 mg PO TID PRN (Reason: muscle spasm) Qty: 14 0RF Lantus Solostar U-100 Insulin 100 unit/mL (3 mL) insulin pen 10 unit subcut BEDTIME peg 3350-electrolytes [Golytely] 236-22.74-6.74 -5.86 gram recon soln 240 ml PO Q10M 1 Days Qty: 4000 0RF Rx Instructions: until fecal effluent is clear; do not exceed a total volume of 2,000 mL buprenorphine-naloxone [Suboxone] 2-0.5 mg film 1 film buccal DAILY Rx Instructions: place 1 strip/tab under (each) side of tongue Trulicity 0.75 mg/0.5 mL pen injector 0.75 mg subcut QWEEK Referrals: Geoff Oneal MD [Physician, Neurology] - 03/27/25 Interventions: ED Discharge Assessment Last Done: 03/21/25 18:57 Discharge Date/Time: 03/21/25 18:57 Print Language: Slovak
[2025-03-21 14:45] VITALS: BP 192/79; PULSE 97; RESP 16; TEMP 36.4; O2SAT 96; BMI 36.8
--- NOTE | 2025-03-21 14:49 | ECG_ITS ---
Test Reason : facial numbness Blood Pressure : */* mmHG Vent. Rate : 92 BPM Atrial Rate : 92 BPM P-R Int : 126 ms QRS Dur : 82 ms QT Int : 360 ms P-R-T Axes : 28 -27 60 degrees QTcB Int : 445 ms Normal sinus rhythm Minimal voltage criteria for LVH, may be normal variant ( R in aVL ) Borderline ECG No previous ECGs available Referred By: Giovanna Sen Electronically Signed By: JARRELL CASTAÑEDA MD
[2025-03-21 15:10] LABS: MANUAL DIFF FLAG NO
[2025-03-21 15:11] LABS: Hematocrit 39.1 % (37.0-47.0); Hemoglobin 12.3 g/dl (12.0-16.0); Imm Gran Abs Auto 0.03 X10*3/uL (0.00-0.03); Imm Gran Pct Auto 0.5 % (0.0-0.4); Lymphocytes Absolute Auto 1.7 X10*3/uL (1.2-4.9); Mean Corpuscular HGB Conc 31.5 g/dl (31.0-35.0); Mean Corpuscular Hemoglobin 23.9 pg (27.0-33.0); Mean Corpuscular Volume 76.1 fL (80.0-98.0); NRBC Abs Auto 0.000 X10*3/uL (0.0-0.012); NRBC Pct Auto 0.0 /100WBC (0.0-0.2); Platelet Count 242 X10*3/uL (160-400); Red Blood Count 5.14 X10*6/uL (4.20-5.50); White Blood Count 6.5 X10*3/uL (4.8-10.8)
[2025-03-21 15:24] LABS: Alanine Aminotransferase 21 U/L (0-31); Albumin Level 4.0 g/dL (3.5-5.0); Alkaline Phosphatase 88 U/L (39-117); Anion Gap 11 (12-20); Aspartate Amino Transferase 22 U/L (5-31); Blood Urea Nitrogen 16 mg/dL (9-16); Calcium 9.0 mg/dL (8.4-10.2); Carbon Dioxide 27 mmol/L (22-29); Chloride 105 mmol/L (96-108); Creatinine Clr Calc Pharmacy 96.6; Estimated Glomerular Filt Rate > 60; Magnesium 1.6 mg/dL (1.6-2.6); Potassium 3.7 mmol/L (3.3-5.1); Sodium 139 mmol/L (135-145); Total Protein 7.6 g/dL (6.5-8.0)
--- OUTSIDE RECORDS SUMMARY | 2025-03-21 16:50 | XMS_ITS | Clinical Summary ---
Author Organization [address] [facility] Address [address] [place] [address] Phone Care Team Providers Care Risk Control Product Liability Director Name Role Phone Mitra Veras MD Primary Care Provider [phone] Allergies No known active allergies Medications buprenorphine-nalo xone (Suboxone) 2-0.5 mg film 4 Active losartan (COZAAR) 50 mg tablet 4 Active semaglutide (Ozempic) 2 mg/dose (8 mg/3 mL) injection pen 4 Active clotrimazole (LOTRIMIN) 1 % cream Apply to skin and toenails daily for 12 weeks 4 Active cholecalciferol (Vitamin D3) 50 mcg (2,000 unit) capsuleIndications :Postoperative intestinal malabsorption Take 1 capsule (2,000 Units total) by mouth 1 (one) time each day. 90 capsule 3 5 08/14/19 26 Active Active Problems Problem Noted Date Diagnosed Date Asthma due to seasonal allergies 02/27/2024 DM (diabetes mellitus) ([facility] V24, [facility] V28 ) 02/27/2024 BARRY on CPAP 02/27/2024 Class 3 severe obesity with body mass index (BMI) of 40.0 to 44.9 in adult ([facility] V24, [facility] V28) 02/05/2018 Social History Tobacco Use Types Packs/Day Years Used Date Smoking Tobacco: Never Assessed Comments Unknown Sex and Gender Information Value Date Recorded Sex Assigned at Not on file Legal Sex Female 10:26 AM EST Gender Identity Not on file Sexual Orientation Not on file Last Filed Vital Signs Vital Sign Reading Time Taken Comments Blood Pressure 142/77 07/15/2024 1:26 PM EST Pulse 76 07/15/2024 1:26 PM EST Temperature 36.6 C (97.8 F) 07/15/2024 1:26 PM EST Respiratory Rate - - Oxygen Saturation - - Inhaled Oxygen Concentration - - Weight 92.5 kg (204 lb) 09/23/2024 2:20 PM EDT Height 157.5 cm (5' 2 ) 07/15/2024 1:26 PM EST Body Mass Index 37.31 07/15/2024 1:26 PM EST Plan of Treatment Health Maintenance Due Date Last Done Comments Breast Cancer Screening 1976 Colorectal Cancer Screening: Colonoscopy 1976 Diabetes: Annual Foot Exam 02/28/1986 Diabetes: Annual Retina Eye Exam 02/28/1986 Hepatitis B Vaccines (1 of 3 - 19+ 3-dose series) 02/28/1995 Cervical Cancer Screening: P ap Smear 02/28/1997 HIV Screening 04/25/2022 Hepatitis C Screening 04/25/2022 Social Influencers of Health Screening 04/25/2022 Diabetes: Annual Urine Albumin-Creatinine Ratio (uACR) 05/12/2022 Depression Screening 05/28/2024 COVID-19 Vaccine (2024-2 6 season) 2025 06/18/2023, 10/07/2020, 09/09/2020 Influenza Vaccine (#1) 2025 , 04/12/2015, 02/25/2014 Diabetes: Blood Sugar Contro l Test (HGBA1C) 02/05/2025 08/05/2024, 01/15/2018 Diabetes: Annual GFR (Glomerular Filtration Rate) 08/05/2025 08/05/2024, 01/15/2018 Hypertension/CHF/CAD Annual BMP Blood Test 08/05/2025 08/05/2024, 01/15/2018 Pneumococcal Vaccine: Pediatrics (0 to 5 Years) and At-Risk Patients (6 to 49 Years) (3 of 3 - PCV20 or PCV21) 02/28/2026 08/31/2017, 11/01/2015 DTaP,Tdap,and Td Vaccines (3 - Td or Tdap) 09/01/2027 08/31/2017, 01/20/2007 Cholesterol Screening (Lipid Panel) 08/05/2029 08/05/2024, 01/15/2018 RSV Immunization Adult Patients (1 - 1-dose 75+ series) 02/28/2051 HIB Vaccines Aged Out No longer eligi ble based on patient's age to complete this topic HPV Vaccines Aged Out No longer eligi ble based on patient's age to complete this topic Hepatitis A Vaccines Aged Out No long er eligible based on patient's age to complete this topic IPV Vaccines Aged Out No longer eligi ble based on patient's age to complete this topic MMR Vaccines Aged Out No longer eligi ble based on patient's age to complete this topic Meningococcal ACWY Vaccine Aged Out N o longer eligible based on patient's age to complete this topic Meningococcal B Vaccine Aged Out No l onger eligible based on patient's age to complete this topic RSV Immunization Patients Under 20 months Aged Out No longer eligible b ased on patient's age to complete this topic Varicella Vaccines Aged Out No longer eligible based on patient's age to complete this topic Procedures Procedure Name Priority Date/Time Associated Diagnosis Comments COMPREHENSIVE METABOLIC PANEL Routine 08/05/2024 1:06 PM EDT Morbid obesity ([facility] V24, [facility] V28) HEMOGLOBIN A1C Routine 08/05/2024 1:06 PM EDT Morbid obesity ([facility] V24, [facility] V28) LIPID PANEL WITH REFLEX TO DIRECT LDL Routine 08/05/2024 1:06 PM EDT Morbid obesity ([facility] V24, [facility] V28) from Last 3 Months or Most Recently Relevant to Health Maintenance Results * (ABNORMAL) Lipid panel with reflex to direct LDL (08/05/2024 1:06 PM EDT) Cholesterol 116 0 - 200 mg/dL LAB CHEMISTRY METHOD 08/05/2024 2:12 PM EDT [facility] Triglycerides 165(H) 0 - 150 mg/dL LAB CHEMISTRY METHOD 08/05/2024 2:12 PM EDT [facility] HDL 31(L) >=40 mg/dL LAB CHEMISTRY METHOD 08/05/2024 2:12 PM EDT [facility] LDL Calculated 52 0 - 100 mg/dL LAB CHEMISTRY METHOD 08/05/2024 2:12 PM EDT [facility] VLDL Cholesterol Brian 33 mg/dL LAB CHEMISTRY METHOD 08/05/2024 2:12 PM EDT [facility] Non HDL Chol. (LDL+VLDL) 85 <145 mg/dL LAB CHEMISTRY METHOD 08/05/2024 2:12 PM EDT [facility] Chol/HDL Ratio 3.7 0.0 - 4.4 LAB CHEMISTRY METHOD 08/05/2024 2:12 PM EDT [facility] Blood Venous blood specimen / Unknown Venipuncture / Unknown 08/05/2024 1:06 PM EDT 08/05/2024 1:30 PM EDT us Emerson Pham MD LAB BLOOD ORDERABLES Final R esult [facility] [address] [place] [address], [place] [phone] * (ABNORMAL) Hemoglobin A1c (08/05/2024 1:06 PM EDT) Hemoglobin A1C 7.9(H) <6.5 % LAB CHEMISTRY METHOD 08/05/2024 9:26 PM EDT [facility] Mean Bld Glu Estim. 180 mg/dL LAB CHEMISTRY METHOD 08/05/2024 9:26 PM EDT [facility] Blood Venous blood specimen / Unknown Venipuncture / Unknown 08/05/2024 1:06 PM EDT 08/05/2024 1:30 PM EDT us Emerson Pham MD LAB BLOOD ORDERABLES Final R esult [facility] [address] [place] [address], [place] [phone] * (ABNORMAL) Comprehensive metabolic panel (08/05/2024 1:06 PM EDT) Sodium 138 133 - 145 mmol/L LAB CHEMISTRY METHOD 08/05/2024 2:12 PM EDT [facility] Potassium 3.9 3.5 - 5.5 mmol/L LAB CHEMISTRY METHOD 08/05/2024 2:12 PM EDT [facility] Chloride 104 96 - 110 mmol/L [facility]STR[facility] CO[facility] 27 21 - 32 mmol/L LAB CHEMISTRY METHOD 08/05/2024 2:[address] [facility] Anion Gap 7 3 - 11 LAB CHEMISTRY METHOD 08/05/2024 2:[address] [facility] Glucose 132(H) 70 - 100 mg/dL LAB CHEMISTRY METHOD 08/05/2024 2:[address] [facility] BUN 14 5 - 25 mg/dL LAB CHEMISTRY METHOD 08/05/2024 2:[address] [facility] Creatinine 0.54 0.50 - 1.10 mg/dL LAB CHEMISTRY METHOD 08/05/2024 2:12 PM EDT [facility] eGFR 114 >=60 mL/min/1. 73m2 LAB CHEMISTRY METHOD 08/05/2024 2:[address] [facility] Comment:Calculation based on the Chronic Kidney Disease Epidemiology Collaboration (CKD-EPI) equation refit without adjustment for race. BUN/Creatinine Ratio 25.9 LAB CHEMISTRY METHOD 08/05/2024 2:[address] [facility] Calcium 8.9 8.5 - 10.5 mg/dL LAB CHEMISTRY METHOD [facility]/05[facility] (SGOT) 15 10 - 42 unit/L LAB CHEMISTRY METHOD 08/05/2024 2:12 PM EDT [facility] ALT (SGPT) 57 10 - 60 unit/L LAB CHEMISTRY METHOD 08/05/2024 2:12 PM EDT [facility] Alkaline Phosphatase 104 42 - 121 unit/L LAB CHEMISTRY METHOD 08/05/2024 2:12 PM EDT [facility] Total Protein 7.1 6.0 - 8.0 g/dL LAB CHEMISTRY METHOD 08/05/2024 2:12 PM EDT [facility] Albumin 3.2 3.2 - 5.0 g/dL LAB CHEMISTRY METHOD 08/05/2024 2:12 PM EDT [facility] Total Bilirubin 0.3 0.0 - 1.4 mg/dL LAB CHEMISTRY METHOD 08/05/2024 2:12 PM EDT [facility] Blood Venous blood specimen / Unknown Venipuncture / Unknown 08/05/2024 1:06 PM EDT 08/05/2024 1:30 PM EDT us Emerson Pham MD LAB BLOOD ORDERABLES Final R esult [facility] [address] [place] [address], from Last 3 Months or Most Recently Relevant to Health Maintenance Insurance [facility] [employer] Care Teams Risk Control Product Liability Director Relationship Specialty Start Date End Date Mitra Veras MD [address] [id number] PCP - General 02/15/24
[2025-03-21 17:26] VITALS: BP 162/93; PULSE 86; RESP 20; TEMP 36.9; O2SAT 96
--- NOTE | 2025-03-21 17:51 | PC.NURSE ---
IV established, labs obtained and sent. medicated per the [facility] for anxiety - MRI screening form completed, patient off unit in MRI.
[2025-03-21 18:57] VITALS: BP 162/93; PULSE 86; RESP 20; TEMP 36.9; O2SAT 96
[2025-03-25 12:18] LABS: Lyme Abs Screen <0.90 index
== END 2025-03-21 18:57 | disposition home or self-care (01) ==
PROVIDERS: Physician Assistant; Emergency Provider Emergency Medicine Emergency Medical Services
DX: G51.0 Bell's palsy (principal); E11.9 Type 2 diabetes mellitus without complications; R20.0 Anesthesia of skin; Z79.899 Other long term (current) drug therapy
CPT/HCPCS: 36415; 70450; 70551; 80048; 80076; 83735; 85025; 86617; 86618; 93005; 99284

== ENCOUNTER → 2025-03-21 14:49 | Outpatient (BNV) | payer OTHER, SELFPAY | PROVIDERS: Emergency Provider Emergency Medicine Emergency Medical Services; Visit Provider Internal Medicine Cardiovascular Disease | DX: R20.2 Paresthesia of skin (principal) | CPT/HCPCS: 93010 ==

== ENCOUNTER → 2025-03-21 14:52 | Outpatient (BNV) | payer OTHER, SELFPAY | PROVIDERS: Emergency Provider Emergency Medicine Emergency Medical Services; Visit Provider Radiology Diagnostic Radiology | DX: R53.1 Weakness (principal); R20.0 Anesthesia of skin; R22.0 Localized swelling, mass and lump, head | CPT/HCPCS: 70450; 70551 ==